=== PATIENT | male | born 1960 | race Caucasian/White ===

== ENCOUNTER 2019-08-21 16:17 | Emergency (ER) | payer SELFPAY ==
[~2019-08-21] VITALS: Ht 180.3 cm; Wt 102.1 kg
[2019-08-21 16:17] VITALS: BP 142/103
--- NOTE | 2019-08-21 16:17 | NUR ---
DR KULKARNI EVALUATING PT'S CERVICAL NECK, C-COLLAR REMOVED BY DR KULKARNI.
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
--- NOTE | 2019-08-21 16:20 | NUR ---
PT TRIAGED, SENT BACK TO LOBBY AWAITING FOR BED
--- NOTE | 2019-08-21 17:45 | NUR ---
PATIENT LEFT WITHOUT BEING SEEN BY DR. KULKARNI. NO FURTHER CARE PROVIDED FOR PATIENT.
--- NOTE | 2019-08-21 17:46 | NUR ---
Ryan shannon in [facility] - 08/21/19 at 1747 by [facility] PATIENT LEFT WITHOUT BEING SEEN BY DR. KULKARNI. NO FURTHER CARE PROVIDED FOR PATIENT.
== END 2019-08-21 17:45 | disposition left against medical advice (07) ==
LOC: MED 16:17
DX: Z53.21 Procedure and treatment not carried out due to patient leaving prior to being seen by health care provider (principal); M54.2 Cervicalgia; M25.519 Pain in unspecified shoulder
CPT/HCPCS: 72072; 99281